=== PATIENT | male | born 1975 | race Caucasian/White ===

== ENCOUNTER 2016-05-07 11:09 | Emergency (ER) | payer OTHER ==
[~2016-05-07] VITALS: Ht 182.9 cm; Wt 102.3 kg
[~2016-05-07 11:09] MED LIST: LACO100 PO; LAMO100 PO; PHEN100C23 PO; PHEN32.43 PO; PHEN60TA15 PO; VALP250 PO
[2016-05-07] MEDS ORDERED: SODIUM CHLORIDE 0.9% 1,000 ML IV ONE (11:30)
[2016-05-07 11:31] LABS: GLUCOSE,POINT OF CARE 79 MG/DL (70-110)
[2016-05-07] MEDS ORDERED: LORazepam 2 MG/ML VIAL ONE (11:58)
[2016-05-07 13:24] VITALS: BP 120/78
== END 2016-05-07 14:08 | disposition left against medical advice (07) ==
LOC: EMS 11:11
DX: F44.5 Conversion disorder with seizures or convulsions (principal); F12.90 Cannabis use, unspecified, uncomplicated
CPT/HCPCS: 82962; 96360; 96361; 99285; J2060

== ENCOUNTER 2016-07-17 14:57 | Inpatient (IN) | payer MEDICARE, OTHER ==
[~2016-07-17] VITALS: Ht 175.3 cm; Wt 91.2 kg
[2016-07-17] MEDS ORDERED: SODIUM CHLORIDE 0.9% 1,000 ML IV ONE (15:15)
[2016-07-17 15:17] LABS: GLUCOSE,POINT OF CARE 90 MG/DL (70-110)
[2016-07-17] MEDS ORDERED: PHEN100C23 PO (15:17)
[2016-07-17 15:36] LABS: BASOPHILS % (AUTO) 0.4 % (0.0-2.0); EOSINOPHILS % (AUTO) 1.1 % (1.0-6.0); HEMATOCRIT 46.7 % (41-53); HEMOGLOBIN 15.8 g/dL (13.5-17.5); LYMPHOCYTES # (AUTO) 2.1 K/uL (1.0-4.8); LYMPHOCYTES % (AUTO) 31.9 % (22.0-44.0); MEAN CORPUSCULAR HEMOGLOBIN 31.5 pg (26.0-34.0); MEAN CORPUSCULAR HGB CONC 33.8 G/dL (31.0-37.0); MEAN CORPUSCULAR VOLUME 93 fL (80-100); MONOCYTES # (AUTO) 0.5 K/uL (0.1-1.0); MONOCYTES % (AUTO) 6.9 % (2.0-9.0); NEUTROPHILS # (AUTO) 3.9 K/uL (1.8-7.7); NEUTROPHILS % (AUTO) 59.7 % (40.0-70.0); PLATELET COUNT (AUTO) 177 K/uL (150-450); RED BLOOD CELL COUNT(AUTO) 5.02 MIL/uL (4.50-5.90); RED CELL DISTRIBUTION WIDTH 13.1 % (11.5-14.5); WHITE BLOOD COUNT (AUTO) 6.6 K/uL (4.5-11.0)
[2016-07-17 15:40] LABS: ANION GAP 6 mmol/L (8-16); CALCIUM, TOTAL 8.3 mg/dL (8.8-10.5); CARBON DIOXIDE 28 mmol/L (22-29); CHLORIDE 107 mmol/L (98-107); CREATININE 1.44 mg/dL (0.60-1.30); GLOMERULAR FILTR. RATE CALC 55 mL/min (>60); POTASSIUM 3.6 mmol/L (3.5-5.1); SODIUM SERUM 141 mmol/L (136-145); UREA NITROGEN, BLOOD 13 mg/dL (7-18)
[2016-07-17 15:46] LABS: ALANINE AMINOTRANSFERASE 60 U/L (12-78); ALBUMIN 3.4 g/dL (3.4-5.0); ASPARTATE AMINOTRANSFERASE 29 U/L (15-37); BILIRUBIN,TOTAL 0.3 mg/dL (0.1-1.0); PHENOBARBITAL 25 mcg/mL (15-40); TOTAL PROTEIN, SERUM 6.1 g/dL (6.4-8.2); VALPROIC ACID < 3 mcg/mL (50-100)
[2016-07-17] MEDS ORDERED: LORazepam 2 MG/ML VIAL ONE (16:52)
[2016-07-17] MEDS ORDERED: LORazepam 2 MG/ML VIAL IVP ONE (17:00)
[2016-07-17] MEDS ORDERED: PHENYTOIN SODIUM 1,000 MG in SODIUM CHLORIDE 0.9% 150 ML IV ONE (17:00)
[2016-07-17 19:56] LABS: GLUCOSE,POINT OF CARE 157 MG/DL (70-110)
[2016-07-17 20:24] VITALS: BP 128/78
[2016-07-17] MEDS ORDERED: LORazepam 2 MG/ML VIAL IM PRN (21:45)
[2016-07-17] MEDS ORDERED: LORazepam 2 MG/ML VIAL IVP PRN (22:00)
[2016-07-17] MEDS ORDERED: LACOSAMIDE 100 MG TABLET PO SCH (22:00)
[2016-07-17] MEDS ORDERED: PHENobarbital 30 MG TABLET PO ONE (22:15)
[2016-07-17] MEDS ORDERED: LamoTRIgine 100 MG TABLET PO ONE (22:15)
[2016-07-17] MEDS: LACOSAMIDE 100 MG TABLET PO SCH (22:19)
[2016-07-17 23:44] VITALS: BP 127/73
[2016-07-18] MEDS ORDERED: 0.9% SODIUM CHLORIDE 10 ML SYRINGE IVP PRN
[2016-07-18] MEDS ORDERED: OxyCODONE HCL/ACETAMINOPHEN 5-325 MG TABLET PO PRN ×2
[2016-07-18] MEDS ORDERED: PHENYTOIN SODIUM 100 MG ER CAPSULE PO ONE
[2016-07-18] MEDS ORDERED: ONDANSETRON HCL 4 MG/2 ML VIAL IVP PRN
[2016-07-18] MEDS ORDERED: ACETAMINOPHEN 325 MG TABLET PO PRN
[2016-07-18] MEDS ORDERED: LACOSAMIDE 100 MG TABLET PO SCH
[2016-07-18] MEDS ORDERED: MAGNESIUM HYDROXIDE SUSPENSION 30 ML UDCUP PO PRN
[2016-07-18] MEDS: DOCUSATE SODIUM 100 MG CAPSULE PO SCH ×2 (00:50→08:15)
[2016-07-18 04:59] VITALS: BP 149/92
[2016-07-18] MEDS ORDERED: LORazepam 2 MG/ML VIAL IVP PRN (05:12)
[2016-07-18] MEDS ORDERED: LORazepam 2 MG/ML VIAL IVP ONE (05:15)
[2016-07-18 06:48] LABS: CALCIUM, TOTAL 8.4 mg/dL (8.8-10.5); CREATININE 1.38 mg/dL (0.60-1.30)
[2016-07-18 07:05] LABS: BASOPHILS # (AUTO) 0.04 K/uL (0.00-0.20); BASOPHILS % (AUTO) 0.4 % (0.0-2.0); EOSINOPHILS # (AUTO) 0.15 K/uL (0.00-0.70); EOSINOPHILS % (AUTO) 1.75 % (1.0-6.0); HEMATOCRIT 47.6 % (41-53); HEMOGLOBIN 16.2 g/dL (13.5-17.5); LYMPHOCYTES # (AUTO) 2.9 K/uL (1.0-4.8); MEAN CORPUSCULAR HEMOGLOBIN 31.7 pg (26.0-34.0); MEAN CORPUSCULAR VOLUME 93 fL (80-100); MONOCYTES # (AUTO) 0.7 K/uL (0.1-1.0); MONOCYTES % (AUTO) 8.4 % (2.0-9.0); NEUTROPHILS # (AUTO) 4.7 K/uL (1.8-7.7); NEUTROPHILS % (AUTO) 55.4 % (40.0-70.0); PLATELET COUNT (AUTO) 163 K/uL (150-450); RED BLOOD CELL COUNT(AUTO) 5.11 MIL/uL (4.50-5.90); WHITE BLOOD COUNT (AUTO) 8.5 K/uL (4.5-11.0)
[2016-07-18 07:20] VITALS: BP 145/98
[2016-07-18] MEDS: LACOSAMIDE 100 MG TABLET PO SCH (08:17)
[2016-07-18] MEDS ORDERED: PHENYTOIN SODIUM 100 MG ER CAPSULE PO SCH ×4 (09:00→16:00)
[2016-07-18] MEDS ORDERED: PHENobarbital 30 MG TABLET PO SCH ×2 (09:00→17:00)
[2016-07-18] MEDS ORDERED: PANTOPRAZOLE SODIUM 40 MG/VIAL IVP SCH (09:00)
[2016-07-18] MEDS ORDERED: LamoTRIgine 100 MG TABLET PO SCH ×3 (09:00→21:00)
[2016-07-18 11:31] VITALS: BP 143/83
[2016-07-18] MEDS ORDERED: PHEN60TA15 PO (12:03)
[2016-07-18] MEDS ORDERED: PHEN32.43 PO (12:03)
== END 2016-07-18 14:24 | disposition home or self-care (01) | DRG 101 ==
LOC: EMS 14:58 → 5N 18:14
PROVIDERS: ADMIT Internal Medicine; ATTEND Internal Medicine
DX: G40.909 Epilepsy, unspecified, not intractable, without status epilepticus (principal); J98.11 Atelectasis; F41.9 Anxiety disorder, unspecified; F32.9 Major depressive disorder, single episode, unspecified; R56.9 Unspecified convulsions; F12.90 Cannabis use, unspecified, uncomplicated; Z79.899 Other long term (current) drug therapy; Z90.49 Acquired absence of other specified parts of digestive tract
CPT/HCPCS: 82962; 93005; 96361; 96365; 99285; C9113; G0480; J1165; J2060; J7030; J7050

== ENCOUNTER 2016-07-24 22:51 | Inpatient (IN) | payer MEDICARE, OTHER ==
[~2016-07-24] VITALS: Ht 182.9 cm; Wt 91.0 kg
[~2016-07-24 22:51] MED LIST changes: -VALP250 PO
[2016-07-24] MEDS ORDERED: PHENY100 PO (23:07)
[2016-07-24] MEDS ORDERED: PHEN32.43 PO (23:07)
[2016-07-24] MEDS ORDERED: LAMO100 PO (23:07)
[2016-07-24] MEDS ORDERED: PHEN60TA15 PO (23:07)
[2016-07-24] MEDS ORDERED: LACO100 PO (23:07)
[2016-07-24 23:17] LABS: GLUCOSE,POINT OF CARE 115 MG/DL (70-110)
[2016-07-24 23:25] LABS: BASOPHILS # (AUTO) 0.02 K/uL (0.00-0.20); BASOPHILS % (AUTO) 0.3 % (0.0-2.0); EOSINOPHILS # (AUTO) 0.12 K/uL (0.00-0.70); EOSINOPHILS % (AUTO) 1.87 % (1.0-6.0); HEMATOCRIT 44.9 % (41-53); HEMOGLOBIN 15.4 g/dL (13.5-17.5); LYMPHOCYTES # (AUTO) 2.5 K/uL (1.0-4.8); LYMPHOCYTES % (AUTO) 39.2 % (22.0-44.0); MEAN CORPUSCULAR HEMOGLOBIN 31.8 pg (26.0-34.0); MEAN CORPUSCULAR HGB CONC 34.3 G/dL (31.0-37.0); MEAN CORPUSCULAR VOLUME 93 fL (80-100); MONOCYTES # (AUTO) 0.5 K/uL (0.1-1.0); MONOCYTES % (AUTO) 7.3 % (2.0-9.0); NEUTROPHILS # (AUTO) 3.3 K/uL (1.8-7.7); NEUTROPHILS % (AUTO) 51.3 % (40.0-70.0); PLATELET COUNT (AUTO) 168 K/uL (150-450); RED BLOOD CELL COUNT(AUTO) 4.84 MIL/uL (4.50-5.90); RED CELL DISTRIBUTION WIDTH 12.6 % (11.5-14.5); WHITE BLOOD COUNT (AUTO) 6.5 K/uL (4.5-11.0)
[2016-07-24 23:35] LABS: CALCIUM, TOTAL 8.5 mg/dL (8.8-10.5); CREATININE 1.68 mg/dL (0.60-1.30); POTASSIUM 3.3 mmol/L (3.5-5.1)
[2016-07-24 23:41] LABS: ALBUMIN 3.4 g/dL (3.4-5.0); BILIRUBIN,TOTAL 0.2 mg/dL (0.1-1.0); TOTAL PROTEIN, SERUM 6.2 g/dL (6.4-8.2)
[2016-07-25] VITALS (7 sets, daily range): BP systolic 116–150; BP diastolic 68–98
[2016-07-25] MEDS ORDERED: PHENYTOIN SODIUM 1,000 MG in SODIUM CHLORIDE 0.9% 150 ML IV ONE ×2
[2016-07-25 00:37] LABS: GLUCOSE,POINT OF CARE 93 MG/DL (70-110)
[2016-07-25] MEDS ORDERED: LORazepam 2 MG/ML VIAL ONE (01:34)
[2016-07-25 01:42] LABS: GLUCOSE,POINT OF CARE 103 MG/DL (70-110)
[2016-07-25] MEDS ORDERED: LORazepam 2 MG/ML VIAL IVP ONE (01:45)
[2016-07-25] MEDS ORDERED: ONDANSETRON HCL 4 MG/2 ML VIAL IVP PRN (02:15)
[2016-07-25] MEDS ORDERED: ACETAMINOPHEN 325 MG TABLET PO PRN ×2 (02:15→08:30)
[2016-07-25] MEDS ORDERED: LORazepam 2 MG/ML VIAL IVP PRN (02:30)
[2016-07-25] MEDS ORDERED: LAMO200T PO (05:06)
[2016-07-25] MEDS ORDERED: EMTR1TAB11 PO (05:08)
[2016-07-25] MEDS ORDERED: OxyCODONE HCL/ACETAMINOPHEN 5-325 MG TABLET PO PRN (08:30)
[2016-07-25] MEDS ORDERED: MAGNESIUM HYDROXIDE SUSPENSION 30 ML UDCUP PO PRN (08:30)
[2016-07-25] MEDS ORDERED: BISACODYL 10 MG RECTAL RECTAL SUPPOSITORY PR PRN (08:30)
[2016-07-25] MEDS ORDERED: POTASSIUM CHL 10 MEQ/WATER 50 ML IV PRN (08:45)
[2016-07-25] MEDS ORDERED: POTASSIUM CHLORIDE 20 MEQ ER TABLET PO PRN (08:45)
[2016-07-25] MEDS ORDERED: PHENYTOIN 100 MG/4 ML SUSPENSION UDCUP PO SCH (09:00)
[2016-07-25] MEDS: PANTOPRAZOLE SODIUM 40 MG DR TABLET PO SCH (10:05)
[2016-07-25] MEDS: PHENYTOIN 100 MG/4 ML SUSPENSION UDCUP PO SCH ×2 (10:06→21:00)
[2016-07-25] MEDS: DOCUSATE SODIUM 100 MG CAPSULE PO SCH ×2 (10:06→20:59)
[2016-07-25] MEDS: LACOSAMIDE 100 MG TABLET PO SCH ×2 (10:06→21:00)
[2016-07-25] MEDS: EMTRICITABINE/TENOFOVIR 200-300 MG TABLET PO SCH (10:06)
[2016-07-25] MEDS: LORazepam 2 MG/ML VIAL IVP PRN ×3 (11:12→22:36)
[2016-07-25] MEDS: LamoTRIgine 100 MG TABLET PO SCH ×2 (12:33→16:37)
[2016-07-25] MEDS ORDERED: *PATIENT'S OWN MED [ENTER DRUG, DOSE, FREQUENCY IN COMMENTS] CLINICAL ONE ×2 (18:15)
[2016-07-25] MEDS ORDERED: ADALIMUMAB SQ SCH (18:45)
[2016-07-25] MEDS ORDERED: [UNRECOGNIZED DRUG - OTHER] SQ SCH (18:45)
[2016-07-25] MEDS ORDERED: LamoTRIgine 100 MG TABLET PO SCH (21:00)
[2016-07-26 00:29] VITALS: BP 138/92
[2016-07-26 04:55] VITALS: BP 109/68
[2016-07-26] MEDS: LORazepam 2 MG/ML VIAL IVP PRN (06:31)
[2016-07-26 07:17] VITALS: BP 133/70
[2016-07-26] MEDS: DOCUSATE SODIUM 100 MG CAPSULE PO SCH (09:00)
[2016-07-26] MEDS: PANTOPRAZOLE SODIUM 40 MG DR TABLET PO SCH (09:35)
[2016-07-26] MEDS: LACOSAMIDE 100 MG TABLET PO SCH (09:36)
[2016-07-26] MEDS: EMTRICITABINE/TENOFOVIR 200-300 MG TABLET PO SCH (09:36)
[2016-07-26] MEDS: LamoTRIgine 100 MG TABLET PO SCH (09:36)
[2016-07-26] MEDS: PHENYTOIN 100 MG/4 ML SUSPENSION UDCUP PO SCH (09:36)
[2016-07-26 10:48] VITALS: BP 157/97
[2016-07-30 19:47] LABS: GLUCOSE,POINT OF CARE 79 MG/DL (70-110)
[2016-07-30 19:47] LABS: GLUCOSE,POINT OF CARE 89 MG/DL (70-110)
[2016-07-30 19:57] LABS: GLUCOSE,POINT OF CARE 102 MG/DL (70-110)
[2016-07-30 19:57] LABS: GLUCOSE COMMENT 1 Juice/Food/D50 Given; GLUCOSE,POINT OF CARE 68 MG/DL (70-110)
== END 2016-07-26 11:20 | disposition home or self-care (01) | DRG 101 ==
LOC: EMS 22:53 → 5S 07-25 02:14
PROVIDERS: ADMIT Internal Medicine; ATTEND Internal Medicine
DX: G40.901 Epilepsy, unspecified, not intractable, with status epilepticus (principal); N17.9 Acute kidney failure, unspecified; F44.5 Conversion disorder with seizures or convulsions; E16.2 Hypoglycemia, unspecified; F12.90 Cannabis use, unspecified, uncomplicated; F31.9 Bipolar disorder, unspecified; F99 Mental disorder, not otherwise specified; F41.9 Anxiety disorder, unspecified; F32.9 Major depressive disorder, single episode, unspecified; Z90.49 Acquired absence of other specified parts of digestive tract; Z79.899 Other long term (current) drug therapy; Z21 Asymptomatic human immunodeficiency virus [HIV] infection status
CPT/HCPCS: 82948; 82962; 84132; 87081; 96365; 96375; 99291; J1165; J2060; J7050

== ENCOUNTER 2016-08-02 20:17 | Emergency (ER) | payer MEDICARE, OTHER ==
[~2016-08-02] VITALS: Ht 182.9 cm; Wt 91.0 kg
[~2016-08-02 20:17] MED LIST changes: +EMTR1TAB11 PO; +LAMO200T PO; -PHEN100C23 PO; +PHENY100 PO
[2016-08-02 20:39] LABS: BASOPHILS % (AUTO) 0.4 % (0.0-2.0); EOSINOPHILS % (AUTO) 0.7 % (1.0-6.0); HEMATOCRIT 49.7 % (41-53); HEMOGLOBIN 16.5 g/dL (13.5-17.5); LYMPHOCYTES # (AUTO) 2.6 K/uL (1.0-4.8); LYMPHOCYTES % (AUTO) 38.9 % (22.0-44.0); MEAN CORPUSCULAR HEMOGLOBIN 31.1 pg (26.0-34.0); MEAN CORPUSCULAR HGB CONC 33.1 G/dL (31.0-37.0); MEAN CORPUSCULAR VOLUME 94 fL (80-100); MONOCYTES # (AUTO) 0.3 K/uL (0.1-1.0); MONOCYTES % (AUTO) 5.2 % (2.0-9.0); NEUTROPHILS # (AUTO) 3.7 K/uL (1.8-7.7); NEUTROPHILS % (AUTO) 54.8 % (40.0-70.0); PLATELET COUNT (AUTO) 196 K/uL (150-450); RED CELL DISTRIBUTION WIDTH 13.4 % (11.5-14.5); WHITE BLOOD COUNT (AUTO) 6.7 K/uL (4.5-11.0)
[2016-08-02] MEDS ORDERED: LORazepam 2 MG/ML VIAL ONE (20:46)
[2016-08-02 20:51] LABS: ANION GAP 13 mmol/L (8-16); CALCIUM, TOTAL 8.1 mg/dL (8.8-10.5); CARBON DIOXIDE 25 mmol/L (22-29); CHLORIDE 109 mmol/L (98-107); CREATININE 1.57 mg/dL (0.60-1.30); GLOMERULAR FILTR. RATE CALC 49 mL/min (>60); POTASSIUM 4.1 mmol/L (3.5-5.1); SODIUM SERUM 147 mmol/L (136-145); UREA NITROGEN, BLOOD 9 mg/dL (7-18)
[2016-08-02 21:04] LABS: ALANINE AMINOTRANSFERASE 60 U/L (12-78); ALBUMIN 3.7 g/dL (3.4-5.0); ASPARTATE AMINOTRANSFERASE 36 U/L (15-37); BILIRUBIN,TOTAL 0.2 mg/dL (0.1-1.0); TOTAL PROTEIN, SERUM 6.8 g/dL (6.4-8.2)
[2016-08-02 21:14] LABS: APPEARANCE,URINE CLEAR (CLEAR); GLUCOSE, URINE (UA) NEGATIVE (NEGATIVE); KETONES,URINE NEGATIVE (NEGATIVE); LEUKOCYTE ESTERASE ,URINE NEGATIVE (NEGATIVE); OCCULT BLOOD,URINE NEGATIVE (NEGATIVE); PH,URINE 5.5 (5.0-8.0); PROTEIN,URINE NEGATIVE (NEGATIVE); RBC,URINE None Seen /HPF (0-2); WBC,URINE None Seen /HPF (0-5)
[2016-08-02 21:30] LABS: LACTIC ACID 2.3 mmol/L (0.4-2.0)
[2016-08-02] MEDS ORDERED: SODIUM CHLORIDE 0.9% 1,000 ML IV ONE (22:15)
[2016-08-02 22:30] VITALS: BP 131/95
[2016-08-02 22:34] LABS: REFLEX LACTIC ACID? YES YES
== END 2016-08-02 23:15 | disposition home or self-care (01) ==
LOC: EMS 20:26
DX: G40.909 Epilepsy, unspecified, not intractable, without status epilepticus (principal); F12.90 Cannabis use, unspecified, uncomplicated
CPT/HCPCS: 36415; 51702; 71010; 80053; 80307; 81001; 82948; 83605; 83690; 84484; 85025; 93005; 96360; 99285; G0480; J2060

== ENCOUNTER 2016-08-11 07:47 | Emergency (ER) | payer MEDICARE, OTHER ==
[~2016-08-11] VITALS: Ht 182.9 cm; Wt 85.0 kg
[2016-08-11 08:48] LABS: ANION GAP 8 mmol/L (8-16); CALCIUM, TOTAL 8.7 mg/dL (8.8-10.5); CARBON DIOXIDE 26 mmol/L (22-29); CHLORIDE 107 mmol/L (98-107); CREATININE 1.38 mg/dL (0.60-1.30); GLOMERULAR FILTR. RATE CALC 57 mL/min (>60); POTASSIUM 3.9 mmol/L (3.5-5.1); SODIUM SERUM 141 mmol/L (136-145); UREA NITROGEN, BLOOD 9 mg/dL (7-18)
[2016-08-11 08:54] LABS: PHENOBARBITAL 24 mcg/mL (15-40)
[2016-08-11] MEDS ORDERED: PHENYTOIN SODIUM 1,000 MG in SODIUM CHLORIDE 0.9% 150 ML IV ONE (09:15)
[2016-08-11] MEDS ORDERED: LACOSAMIDE 100 MG TABLET PO ONE (12:00)
[2016-08-11] MEDS ORDERED: LamoTRIgine 100 MG TABLET PO ONE (12:00)
[2016-08-11 12:30] VITALS: BP 133/83
== END 2016-08-11 12:36 | disposition home or self-care (01) ==
LOC: EMS 07:49
DX: G40.909 Epilepsy, unspecified, not intractable, without status epilepticus (principal); R79.1 Abnormal coagulation profile; F12.90 Cannabis use, unspecified, uncomplicated; F32.9 Major depressive disorder, single episode, unspecified; F41.9 Anxiety disorder, unspecified
CPT/HCPCS: 36415; 51701; 80048; 80184; 80185; 80307; 82962; 96365; 96366; 99285; G0480; J1165; J7050

== ENCOUNTER 2016-08-18 06:20 | Emergency (ER) | payer MEDICARE, OTHER ==
[~2016-08-18] VITALS: Ht 180.3 cm; Wt 86.4 kg
[2016-08-18 07:40] VITALS: BP 128/76
== END 2016-08-18 07:41 | disposition home or self-care (01) ==
LOC: EMS 06:21 → EEVIPCON 06:21 → EMS 07:41
DX: G40.909 Epilepsy, unspecified, not intractable, without status epilepticus (principal); F31.9 Bipolar disorder, unspecified; F41.9 Anxiety disorder, unspecified; F12.90 Cannabis use, unspecified, uncomplicated
CPT/HCPCS: 99285

== ENCOUNTER 2016-10-25 06:07 | Emergency (ER) | payer MEDICARE, OTHER ==
[~2016-10-25] VITALS: Ht 182.9 cm; Wt 90.9 kg
[2016-10-25 06:59] LABS: BASOPHILS % (AUTO) 0.7 % (0.0-2.0); EOSINOPHILS % (AUTO) 0.3 % (1.0-6.0); HEMATOCRIT 46.8 % (41-53); LYMPHOCYTES # (AUTO) 1.4 K/uL (1.0-4.8); LYMPHOCYTES % (AUTO) 21.4 % (22.0-44.0); MEAN CORPUSCULAR HGB CONC 34.1 G/dL (31.0-37.0); MEAN CORPUSCULAR VOLUME 91 fL (80-100); MONOCYTES # (AUTO) 0.5 K/uL (0.1-1.0); NEUTROPHILS # (AUTO) 4.7 K/uL (1.8-7.7); NEUTROPHILS % (AUTO) 70.6 % (40.0-70.0); PLATELET COUNT (AUTO) 207 K/uL (150-450); RED BLOOD CELL COUNT(AUTO) 5.15 MIL/uL (4.50-5.90); RED CELL DISTRIBUTION WIDTH 13.8 % (11.5-14.5); WHITE BLOOD COUNT (AUTO) 6.6 K/uL (4.5-11.0)
[2016-10-25 07:13] LABS: ANION GAP 10 mmol/L (8-16); CALCIUM, TOTAL 9.3 mg/dL (8.8-10.5); CARBON DIOXIDE 25 mmol/L (22-29); CHLORIDE 107 mmol/L (98-107); CREATININE 1.66 mg/dL (0.60-1.30); GLOMERULAR FILTR. RATE CALC 46 mL/min (>60); POTASSIUM 4.1 mmol/L (3.5-5.1); SODIUM SERUM 142 mmol/L (136-145); UREA NITROGEN, BLOOD 8 mg/dL (7-18)
[2016-10-25 07:19] LABS: ALANINE AMINOTRANSFERASE 97 U/L (12-78); ALBUMIN 3.6 g/dL (3.4-5.0); ASPARTATE AMINOTRANSFERASE 81 U/L (15-37); BILIRUBIN,TOTAL 0.5 mg/dL (0.1-1.0); TOTAL PROTEIN, SERUM 6.4 g/dL (6.4-8.2)
[2016-10-25 07:57] VITALS: BP 111/81
== END 2016-10-25 08:12 | disposition home or self-care (01) ==
LOC: EMS 06:09
DX: G40.409 Other generalized epilepsy and epileptic syndromes, not intractable, without status epilepticus (principal); F12.90 Cannabis use, unspecified, uncomplicated
CPT/HCPCS: 82962; 99284

== ENCOUNTER 2016-11-10 01:45 | Emergency (ER) | payer MEDICARE, OTHER ==
[~2016-11-10] VITALS: Ht 177.8 cm; Wt 91.9 kg
[2016-11-10] MEDS ORDERED: LORazepam 2 MG/ML VIAL ONE (01:55)
[2016-11-10] MEDS ORDERED: DiphenhydrAMINE HCL 50 MG/ML VIAL IVP ONE (02:00)
[2016-11-10] MEDS ORDERED: LORazepam 2 MG/ML VIAL IVP ONE (02:00)
[2016-11-10] MEDS ORDERED: SODIUM CHLORIDE 0.9% 1,000 ML IV ONE (02:00)
[2016-11-10 02:31] LABS: BASOPHILS % (AUTO) 0.6 % (0.0-2.0); EOSINOPHILS % (AUTO) 1.7 % (1.0-6.0); HEMATOCRIT 49.6 % (41-53); HEMOGLOBIN 16.5 g/dL (13.5-17.5); LYMPHOCYTES # (AUTO) 3.2 K/uL (1.0-4.8); MEAN CORPUSCULAR HEMOGLOBIN 30.6 pg (26.0-34.0); MEAN CORPUSCULAR HGB CONC 33.2 G/dL (31.0-37.0); MEAN CORPUSCULAR VOLUME 92 fL (80-100); MONOCYTES # (AUTO) 0.7 K/uL (0.1-1.0); MONOCYTES % (AUTO) 8.5 % (2.0-9.0); NEUTROPHILS # (AUTO) 3.9 K/uL (1.8-7.7); NEUTROPHILS % (AUTO) 49.2 % (40.0-70.0); PLATELET COUNT (AUTO) 194 K/uL (150-450); RED BLOOD CELL COUNT(AUTO) 5.39 MIL/uL (4.50-5.90); RED CELL DISTRIBUTION WIDTH 13.7 % (11.5-14.5); WHITE BLOOD COUNT (AUTO) 7.9 K/uL (4.5-11.0)
[2016-11-10 02:36] LABS: ANION GAP 14 mmol/L (8-16); CALCIUM, TOTAL 9.1 mg/dL (8.8-10.5); CARBON DIOXIDE 22 mmol/L (22-29); CHLORIDE 108 mmol/L (98-107); CREATININE 1.73 mg/dL (0.60-1.30); GLOMERULAR FILTR. RATE CALC 44 mL/min (>60); POTASSIUM 4.4 mmol/L (3.5-5.1); SODIUM SERUM 144 mmol/L (136-145); UREA NITROGEN, BLOOD 8 mg/dL (7-18)
[2016-11-10 02:42] LABS: ALANINE AMINOTRANSFERASE 167 U/L (12-78); ALBUMIN 3.3 g/dL (3.4-5.0); ASPARTATE AMINOTRANSFERASE 69 U/L (15-37); BILIRUBIN,TOTAL 0.7 mg/dL (0.1-1.0); PHENOBARBITAL 25 mcg/mL (15-40); TOTAL PROTEIN, SERUM 6.3 g/dL (6.4-8.2)
[2016-11-10 05:00] VITALS: BP 113/59
[2016-11-16] MEDS ORDERED: PANT40TA25 PO (14:59)
[2016-11-16] MEDS ORDERED: OLAN5Z PO (14:59)
[2016-11-16] MEDS ORDERED: VALP250 PO (15:00)
== END 2016-11-10 05:19 | disposition home or self-care (01) ==
LOC: EMS 01:47
DX: G40.909 Epilepsy, unspecified, not intractable, without status epilepticus (principal); F41.9 Anxiety disorder, unspecified; F31.9 Bipolar disorder, unspecified; F12.90 Cannabis use, unspecified, uncomplicated
CPT/HCPCS: 36415; 80053; 80184; 80185; 80307; 85025; 96361; 96374; 96375; 99284; G0480; J1200; J2060; J7030

== ENCOUNTER 2016-11-23 03:36 | Emergency (ER) | payer MEDICARE, OTHER ==
[~2016-11-23] VITALS: Ht 182.9 cm; Wt 77.3 kg
[~2016-11-23 03:36] MED LIST changes: +OLAN5Z PO; -PHEN32.43 PO; -PHEN60TA15 PO; -PHENY100 PO; +VALP250 PO
[2016-11-23 03:53] LABS: GLUCOSE,POINT OF CARE 83 MG/DL (70-110)
[2016-11-23 04:45] LABS: BASOPHILS % (AUTO) 0.2 % (0.0-2.0); EOSINOPHILS % (AUTO) 1.8 % (1.0-6.0); HEMOGLOBIN 14.7 g/dL (13.5-17.5); LYMPHOCYTES # (AUTO) 2.2 K/uL (1.0-4.8); LYMPHOCYTES % (AUTO) 31.9 % (22.0-44.0); MEAN CORPUSCULAR HEMOGLOBIN 30.8 pg (26.0-34.0); MEAN CORPUSCULAR HGB CONC 33.5 G/dL (31.0-37.0); MEAN CORPUSCULAR VOLUME 92 fL (80-100); MONOCYTES # (AUTO) 0.7 K/uL (0.1-1.0); MONOCYTES % (AUTO) 10.1 % (2.0-9.0); NEUTROPHILS # (AUTO) 3.9 K/uL (1.8-7.7); PLATELET COUNT (AUTO) 173 K/uL (150-450); RED BLOOD CELL COUNT(AUTO) 4.79 MIL/uL (4.50-5.90); RED CELL DISTRIBUTION WIDTH 13.9 % (11.5-14.5)
[2016-11-23 04:55] LABS: ANION GAP 9 mmol/L (8-16); CALCIUM, TOTAL 8.7 mg/dL (8.8-10.5); CARBON DIOXIDE 27 mmol/L (22-29); CHLORIDE 108 mmol/L (98-107); CREATININE 1.39 mg/dL (0.60-1.30); GLOMERULAR FILTR. RATE CALC 57 mL/min (>60); SODIUM SERUM 144 mmol/L (136-145); UREA NITROGEN, BLOOD 14 mg/dL (7-18)
[2016-11-23 05:00] LABS: ALANINE AMINOTRANSFERASE 119 U/L (12-78); ASPARTATE AMINOTRANSFERASE 51 U/L (15-37); BILIRUBIN,TOTAL 0.3 mg/dL (0.1-1.0); VALPROIC ACID 4 mcg/mL (50-100)
[2016-11-23] MEDS ORDERED: PHEN100C23 PO (05:26)
[2016-11-23] MEDS ORDERED: ALPRAZolam 0.25 MG TABLET PO ONE (05:45)
[2016-11-23 05:54] VITALS: BP 135/89
== END 2016-11-23 05:57 | disposition home or self-care (01) ==
LOC: EMS 03:38
DX: G40.909 Epilepsy, unspecified, not intractable, without status epilepticus (principal); F06.8 Other specified mental disorders due to known physiological condition; F43.20 Adjustment disorder, unspecified; F41.9 Anxiety disorder, unspecified; F31.9 Bipolar disorder, unspecified; F12.10 Cannabis abuse, uncomplicated; Z79.899 Other long term (current) drug therapy
CPT/HCPCS: 36415; 80053; 80164; 80307; 82962; 85025; 99284; G0480

== ENCOUNTER 2017-01-09 06:56 | Emergency (ER) | payer MEDICARE, OTHER ==
[~2017-01-09] VITALS: Ht 182.9 cm; Wt 55.5 kg
[~2017-01-09 06:56] MED LIST changes: -EMTR1TAB11 PO; +OLAN5TAB40 PO; -OLAN5Z PO; +PHEN100C23 PO; +TRUVT PO; -VALP250 PO
[2017-01-09] MEDS ORDERED: PHEN30TA41 PO (07:11)
[2017-01-09] MEDS ORDERED: PHEN60TA15 PO (07:11)
[2017-01-09 08:25] VITALS: BP 138/88
== END 2017-01-09 08:27 | disposition home or self-care (01) ==
LOC: EMS 06:57
DX: G40.909 Epilepsy, unspecified, not intractable, without status epilepticus (principal); F12.90 Cannabis use, unspecified, uncomplicated; Z88.8 Allergy status to other drugs, medicaments and biological substances
CPT/HCPCS: 99283

== ENCOUNTER 2017-02-27 06:27 | Emergency (ER) | payer MEDICARE, OTHER ==
[~2017-02-27] VITALS: Ht 185.4 cm; Wt 90.9 kg
[~2017-02-27 06:27] MED LIST changes: -PHEN100C23 PO; +PHEN30TA41 PO; +PHEN60TA15 PO
[2017-02-27 06:29] VITALS: BP 137/107
== END 2017-02-27 07:43 | disposition home or self-care (01) ==
LOC: EMS 06:28
DX: G40.909 Epilepsy, unspecified, not intractable, without status epilepticus (principal); F54 Psychological and behavioral factors associated with disorders or diseases classified elsewhere; F31.9 Bipolar disorder, unspecified; F41.9 Anxiety disorder, unspecified; F12.90 Cannabis use, unspecified, uncomplicated; Z88.8 Allergy status to other drugs, medicaments and biological substances
CPT/HCPCS: 99283